=== PATIENT | female | born 1990 | race Caucasian/White ===

== ENCOUNTER 2017-03-31 13:42 | Emergency (ER) | payer OTHER ==
[2017-03-31 13:48] VITALS: BP 116/68; BMI 31.6
--- NOTE | 2017-03-31 14:05 | DR.GENAD ---
HPI - PCP Primary Care Physician: Otoniel - Complaint/Symptoms Chief Complaint:: "Yesterday I was getting onto the golf cart and I hit my head really hard on the top of it. I took some tylenol that night but when I woke up it was hurting me really bad again and I was feeling really dizzy." - Source History Provided: Patient - Mode of Arrival Mode of Arrival: Ambulatory - Timing Onset of Chief Complaint: 03/30/17 PMH - PMH Past Medical History: No Past Surgical History: Yes Surgical History: Appendectomy, [employer] Surgery - Family History History of Family Medical Conditions: Yes Family Medical History: Diabetes Mellitus, Hypertension - Social History Does patient currently use any type of tobacco product: No Have you used tobacco products in the last 12 months: No Type of Tobacco Use: None Does any household member use tobacco: No Alcohol Use: None Do you use any recreational Drugs:: No Lives With: Family Lives Where: Home - infectious screening In the last 2 months have you had wt loss of >10#?: NO Have you had fever, night sweats or hemotysis?: No Have you traveled outside the country in the last 6 months?: No Isolation: Standard ROS - Review of Systems Eyes: No Symptoms Reported ENTM: No Symptoms Reported Respiratoy: No Symptoms Reported Cardiovascular: No Symptoms Reported Gastrointestinal/Abdominal: No Symptoms Reported Genitourinary: No Symptoms Reported Neurological: Headache Musculoskeletal: No Symptoms Reported Integumentary: No Symptoms Reported, See HPI Hematologic/Lymphatic: No Symptoms Reported Endocrine: No Symptoms Reported Psychiatric: No Symptoms Reported All Other Systems: Reviewed and Negative PE - Vital Signs Vitals: Temperature 97.4 F Pulse Rate 86 Respiratory Rate 18 Blood Pressure 116/68 O2 Sat by Pulse Oximetry 94 - General Limitations: No Limitations General Appearance: Alert, In No Apparent Distress - Head Head Exam: Normal Inspection, Atraumatic - Eyes Eye exam: Normal Appearance, PERRL, EOMI - ENT ENT Exam: Normal Exam External Ear Exam: Normal External Inspection TM/Canal Exam: Bilateral Normal Nose Exam: Normal Nose Exam Mouth Exam: Normal Inspection Throat Exam: Normal Inspection - Neck Neck Exam: Normal Inspection - Chest Chest Inspection: Normal Inspection - Respiratory Respiratory Exam: Normal Lung Sounds Bilat Respiratory Exam: Bilateral Clear to Auscultation - Cardiovascular Cardiovascular Exam: Regular Rate, Normal Rhythm - Abdominal Exam Abdominal Exam: Normal Inspection Abdominal Tenderness: negative: RUQ, RLQ, LUQ, LLQ, Epigastrium, Suprapubic, Diffuse, Mild, Moderate, Severe, Other - Extremities Extremities Exam: Normal Inspection - Back Back Exam: Normal Inspection, Full ROM - Neurologic Neurological Exam: Alert, Oriented X3, CN II-XII Intact - Psychiatric Psychiatric Exam: Normal Affect - Skin Skin Exam: Warm, Dry, Intact ROR - XRAY XRAY Interpreted by: Radiologist (CT Brain w/o: No acute intracranial process) - Diagnosis Discharge Problem: Post-traumatic headache Qualifiers: Headache chronicity pattern: acute headache Intractability: not intractable Qualified Code(s): G44.319 - Acute post-traumatic headache, not intractable - Discharge Plan Condition: Stable - Follow ups/Referrals Follow ups/Referrals: KERRY MAYA [Primary Care Provider] - 3 days - Instructions
--- NOTE | 2017-03-31 14:46 | CT ---
HISTORY: Trauma, headache Study: CT brain without contrast Comparison: None Technique: Multiple axial images of the brain were obtained from the skull base to the vertex without administra tion of IV contrast. Findings: No acute intraparenchymal hemorrhage or mass can be identified. No extra-axial fluid collections are seen. No alteration in the attenuation of the brain parenchyma can be identified to suggest acute o r subacute ischemic change. The ventricular system is symmetric and nondilated. The extracranial st ructures are grossly unremarkable. IMPRESSION: 1. No acute intracranial process can be identified. Reported By:
== END 2017-03-31 15:18 | disposition home or self-care (01) ==
LOC: ER 13:53
DX: G44.319 Acute post-traumatic headache, not intractable (principal)
CPT/HCPCS: 70450; 99282; 99283

== ENCOUNTER 2018-09-06 06:29 | Observation (INO) ==
[2018-09-06] MEDS: D5 1/2 NS 1000 ML 1,000 ML IV SCH ×3 (06:26→21:57)
[~2018-09-06 06:29] MED LIST: ANCEF 1 GRAM IV PREMIX* 1 G/50 ML BAG IV ONE; ANCEF VIAL 1 GRAM IVP ONE; D5 1/2 NS 1000 ML 1,000 ML ONE
[2018-09-06] MEDS ORDERED: VASOSTRICT INJ 20 UNITS VIAL ONE (06:38)
[2018-09-06] MEDS ORDERED: XYLOCAINE 1 % (PLAIN) ONE (06:56)
[2018-09-06] MEDS ORDERED: FENTANYL INJ 100 mcg ONE (06:56)
[2018-09-06] MEDS ORDERED: DILAUDID INJ ONE (06:56)
[2018-09-06 07:04] VITALS: BMI 30.7
[2018-09-06] MEDS ORDERED: DECADRON INJ ONE (07:05)
[2018-09-06] MEDS ORDERED: LR 1000 ML IV 1,000 ML ONE (08:04)
[2018-09-06 08:07] LABS: BILIRUBIN,URINE NEGATIVE (NEGATIVE); BLOOD/HEMOGLOBIN,URINE NEGATIVE (NEGATIVE); GLUCOSE, URINE 2+ (NEGATIVE); KETONES,URINE NEGATIVE (NEGATIVE); LEUKOCYTE ESTERASE ,URINE NEGATIVE (NEGATIVE); NITRITES,URINE NEGATIVE (NEGATIVE); PROTEIN,URINE NEGATIVE (NEGATIVE); UROBILINOGEN,URINE NORMAL (NORMAL)
[2018-09-06 08:19] LABS: APPEARANCE,URINE CLEAR (CLEAR); COLOR,URINE YELLOW (YELLOW)
[2018-09-06] MEDS ORDERED: ZOFRAN INJ 4 MG VIAL ONE ×2 (08:55→15:33)
[2018-09-06] MEDS ORDERED: BENADRYL INJ 50 MG VIAL IVP PRN ×2 (08:56→09:10)
[2018-09-06] MEDS ORDERED: PHENERGAN INJ 25 MG IM PRN (08:56)
[2018-09-06] MEDS ORDERED: REGLAN INJ 10 MG VIAL IVP PRN (08:56)
[2018-09-06] MEDS ORDERED: ZOFRAN INJ 4 MG VIAL IVP PRN (08:56)
[2018-09-06] MEDS ORDERED: XANAX PO PRN (09:10)
[2018-09-06] MEDS ORDERED: D5 1/2 NS 1000 ML 1,000 ML IV SCH (09:10)
[2018-09-06] MEDS ORDERED: PERCOCET TAB 5/325 MG PO PRN (09:10)
[2018-09-06] MEDS: PHENERGAN INJ 25 MG IM PRN ×2 (10:42→15:36)
[2018-09-06] MEDS: TORADOL 30 MG VIAL IVP PRN ×2 (10:43→20:45)
[2018-09-06] MEDS ORDERED: SUPRANE ONE (15:33)
[2018-09-06] MEDS ORDERED: LTA KIT LIDOCAINE 4% ONE (15:33)
[2018-09-06] MEDS ORDERED: VERSED ONE (15:33)
[2018-09-06] MEDS ORDERED: DIPRIVAN VIAL ONE (15:33)
[2018-09-06] MEDS ORDERED: REGLAN INJ 10 MG VIAL ONE (15:33)
[2018-09-06] MEDS ORDERED: QUELICIN (OR ANECTINE) ONE (15:33)
[2018-09-06] MEDS: ZOFRAN INJ 4 MG VIAL IVP PRN ×2 (18:17→23:34)
[2018-09-06] MEDS ORDERED: COLACE CAP 100 MG PO SCH (21:00)
[2018-09-07] MEDS: TORADOL 30 MG VIAL IVP PRN (04:37)
[2018-09-07] MEDS: ZOFRAN INJ 4 MG VIAL IVP PRN (04:37)
[2018-09-07 05:29] LABS: BASOPHILS % (AUTO) 0.2 % (0.2-1.0); EOSINOPHILS % (AUTO) 0.1 % (0.9-2.9); LYMPHOCYTES # (AUTO) 2.4 X10^3/uL (1.3-2.9); LYMPHOCYTES % (AUTO) 19.2 % (21.0-51.0); MEAN CORPUSCULAR HEMOGLOBIN 28.1 pg (27.0-34.0); MEAN CORPUSCULAR HGB CONC 34.6 g/dL (33.0-35.0); MEAN CORPUSCULAR VOLUME 81.3 fL (80.0-100.0); MONOCYTES # (AUTO) 0.7 x10^3/uL (0.3-0.8); MONOCYTES % (AUTO) 5.6 % (0.0-13.0); NEUTROPHILS # (AUTO) 9.3 x10^3/uL (2.2-4.8); NEUTROPHILS % (AUTO) 74.9 % (42.0-75.0); PLATELET COUNT 228 X10^3/uL (150.0-450.0); RED BLOOD COUNT 3.19 X10^6/uL (3.5-5.4); RED CELL DISTRIBUTION WIDTH 13.8 % (11.6-16.5); WHITE BLOOD COUNT 12.4 X10^3/uL (3.6-10.0)
[2018-09-07 05:30] LABS: BLOOD UREA NITROGEN 8 mg/dL (7-18); CALCIUM 8.3 mg/dL (8.5-10.1); CARBON DIOXIDE 26.7 mmol/L (21-32); CHLORIDE 104 mmol/L (98-107); CREATININE 0.67 mg/dL (0.55-1.02); SODIUM 141 mmol/L (136-145); eGFR NON BLACK RACES > 60 (>60)
[2018-09-07] MEDS: D5 1/2 NS 1000 ML 1,000 ML IV SCH (05:56)
[2018-09-07 09:43] VITALS: BP 92/54
[2018-09-07] MEDS ORDERED: NS IRRIGATION 1000 ML ONE (12:37)
== END 2018-09-07 09:48 | disposition home or self-care (01) ==
LOC: SURG1 06:29 → MED/SURG 06:29 → OBS 10:51 → MED/SURG 10:52
PROVIDERS: ADMIT Specialist; ATTEND Specialist
DX: N94.19 Other specified dyspareunia; N94.4 Primary dysmenorrhea; R10.2 Pelvic and perineal pain; N92.5 Other specified irregular menstruation
CPT/HCPCS: 36415; 80048; 81003; 85025; 96367; 96374; A4216; A4222; G0378; J0330; J0690; J1100; J1170; J1200; J1885; J2250; J2405; J2550; J2704; J2765; J3010; J3490; J7120; S5010